=== PATIENT | female | born 1950 | race Two or more races ===

== ENCOUNTER 2019-03-24 01:47 | Emergency (ER) | payer OTHER ==
[~2019-03-24] VITALS: Ht 157.5 cm; Wt 63.5 kg
[2019-03-24] MEDS ORDERED: TRILEPTAL150 MG (02:06)
[2019-03-24] MEDS ORDERED: EYE ALLERGY REL15 ML OP (03:06)
== END 2019-03-24 03:19 | disposition home or self-care (01) ==
LOC: ER 01:47
DX: H10.13 Acute atopic conjunctivitis, bilateral (principal)